=== PATIENT | female | born 1980 | race Caucasian/White ===

== ENCOUNTER 2018-11-17 12:45 | Emergency (ER) | payer OTHER ==
[~2018-11-17] VITALS: Ht 152.4 cm; Wt 63.0 kg
[~2018-11-17 12:45] MED LIST: ASPI-605 PO; FERR325T24 PO; LISI10TA5 PO
[2018-11-17] MEDS ORDERED: LORAZEPAM INJ 2 MG/ML VIAL ONE (13:05)
--- NOTE | 2018-11-17 13:16 | NUR ---
PT BIB PRESENTS TO ER TACHYPNEIC, APPEARS ANXIOUS. ALERT AND ORIENTED X 4, VERBALLY RESPONSIVE AND ABLE TO MAKE NEEDS KNOWN. ON ROOM AIR, BREATHING EVENLY AND UNLABORED. DR. GARCIA AT BEDSIDE FOR EVAL. KEPT COMFORTBALE, WILL CONTINUE TO MONITOR ACCORDINGLY.
[2018-11-17 13:22] LABS: WHITE BLOOD COUNT (AUTO) 6.8 K/uL (4.3-11.0)
[2018-11-17 13:23] LABS: CALCIUM, SERUM 8.5 mg/dL (8.5-10.1); CREATININE 0.8 mg/dL (0.6-1.3); HEMATOCRIT 32 % (33-45); HEMOGLOBIN 10.2 g/dL (11.5-14.8); LYMPHOCYTES % (AUTO) 20.3 % (20.0-44.0); MEAN CORPUSCULAR HGB CONC 32 g/dl (31.0-36.0); MEAN CORPUSCULAR VOLUME 80 fL (82-100); MONOCYTES % (AUTO) 4.5 % (2.0-12.0); NEUTROPHILS % (AUTO) 68.3 % (43.0-81.0); PLATELET COUNT (AUTO) 467 /CMM (150-450); POTASSIUM 3.3 mmol/L (3.5-5.1); RED BLOOD CELL COUNT(AUTO) 4.01 MIL/uL (4.0-5.2)
[2018-11-17 13:24] LABS: BASOPHILS % (AUTO) 6.8 % (0.0-2.0); EOSINOPHILS % (AUTO) 0.1 % (0.0-6.0)
[2018-11-17 13:30] LABS: ALBUMIN 4.3 g/dL (3.4-5.0); BILIRUBIN,DIRECT 0.2 mg/dL (0.0-0.2); BILIRUBIN,TOTAL 0.9 mg/dL (0.2-1.0); TOTAL PROTEIN, SERUM 8.8 g/dL (6.4-8.2)
[2018-11-17] MEDS ORDERED: IV NS 0.9% 1,000 ML BAG IV ONE ×2 (13:30→16:00)
[2018-11-17] MEDS ORDERED: LORAZEPAM INJ 2 MG/ML VIAL IVP ONE (13:30)
[2018-11-17 14:22] LABS: APPEARANCE,URINE Slightly Cloudy (CLEAR); BILIRUBIN,URINE Negative (NEGATIVE); BLOOD, URINE Small Ery/uL (NEGATIVE); COLOR,URINE Yellow (YELLOW); KETONES,URINE >=160 (NEGATIVE); LEUKOCYTE ESTERASE ,URINE Negative (NEGATIVE); NITRITE, URINE Negative (NEGATIVE); PROTEIN,URINE 100 mg/dl (NEGATIVE); UGLUCOSE Negative (NEGATIVE); UROBILINOGEN,URINE 0.2 EU/dL (0.2)
[2018-11-17 14:33] LABS: BACTERIA,URINE None seen /HPF (None Seen); MUCUS,URINE Few /LPF (None Seen); SQUAMOUS EPITHELIAL CELL,UR Moderate /HPF (None Seen); WBC,URINE 0-3 /HPF (0-3)
[2018-11-17 14:48] LABS: ALCOHOL, BLOOD < 3 mg/dL (0-0)
[2018-11-17] MEDS ORDERED: IOHEXOL-350 100 ML VIAL IV ONE (15:27)
[2018-11-17] MEDS ORDERED: CT SWABBABLE VALVE TRANS SET 1 EA INFUS.SET MC ONE (15:27)
[2018-11-17] MEDS ORDERED: IV NS 0.9% 250 ML IV ONE (15:27)
--- NOTE | 2018-11-17 15:56 | NUR ---
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
[2018-11-17 16:04] LABS: LYMPHOCYTES % (MANUAL) 18 % (16-48); MONOCYTES % (MANUAL) 7 % (0-11.0); NEUTROPHILS % (MANUAL) 75 (42-76)
--- NOTE | 2018-11-17 16:31 | NUR ---
REPORT GIVEN TO YANET MCGUIRE FOR DEJA.
[2018-11-17] MEDS ORDERED: IV D5/0.45 NACL 1,000 ML IV PRN (16:34)
[2018-11-17] MEDS ORDERED: HYDROCODONE/APAP 5/325MG 1 EACH TABLET PO PRN (17:00)
[2018-11-17] MEDS ORDERED: ACETAMINOPHEN 325 MG TABLET PO PRN (17:00)
[2018-11-17] MEDS ORDERED: ONDANSETRON HCL/PF 4 MG/2 ML VIAL IVP PRN (17:00)
[2018-11-17] MEDS ORDERED: POTASSIUM CL. PREMIX PERIPHER. 50 ML IV SCH (17:00)
[2018-11-17] MEDS ORDERED: LISINOPRIL (10MG) 10 MG TABLET PO SCH (17:00)
--- NOTE | 2018-11-17 17:13 | NUR ---
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 PATIENT WILL GO TO [facility] [address] ACCEPTED BY DR AGOSTO . FOR REPORT CALL AND LOOK FOR SHAYLA GAPSAR. AUTHORIZATION NUMBER [id number] FOR AMBULANCE.
--- NOTE | 2018-11-17 17:32 | NUR ---
Ellis thompson in [facility] - 11/17/18 at 1733 by RANJAN Called [facility] transport to [facility].
--- NOTE | 2018-11-17 17:33 | NUR ---
Called [facility] a S transport to [facility]. Was given an ETA of 1835. Trip#: [id number]
--- NOTE | 2018-11-17 17:37 | NUR ---
CALLED [facility] AND SPOKE TO RAY AND REPORT GIVEN FOR DEJA. PER RAY TO CHECK IN THE PATIENT TO THE ADMITTING BEFORE GOING TO ROOM 5B.
--- NOTE | 2018-11-17 18:40 | NUR ---
[facility]ARD[facility]IENT LEFT VIA AMA AND MADE AWARE.
[2018-11-17 18:42] VITALS: BP 140/78
--- NOTE | 2018-11-17 18:43 | NUR ---
Patient does not wish to proceed with medical care recommended by . Patient given information related to possible complications, up to and including , which could occur as a result of leaving the hospital at this time. Patient verbalizes understanding of risks involved due to leaving against medical advice. Patient has signed AMA form. pt suppossedly going to [facility] for insurance request and does not want to go to that hospital. made aware and director life insurance Ammy.
[2018-11-18] MEDS ORDERED: PANTOPRAZOLE 40 MG VIAL IV SCH (09:00)
== END 2018-11-17 18:43 | disposition left against medical advice (07) ==
LOC: ER 12:46
DX: F41.9 Anxiety disorder, unspecified (principal); Z98.890 Other specified postprocedural states; Z88.0 Allergy status to penicillin; Z79.82 Long term (current) use of aspirin; Z79.899 Other long term (current) drug therapy
CPT/HCPCS: 36415; 80048-TC; 80076-TC; 80305; 81000-TC; 82010-TC; 83605-TC; 84703-TC; 85025-TC; 87081-TC; 87086-TC; A4606; G0480; J2060; J7030; J7050; Q9967; Z7610